=== PATIENT | female | born 1945 | race Caucasian/White ===

== ENCOUNTER 2024-02-28 19:32 | Inpatient (IN) | payer MEDICAID, MEDICARE ==
[2024-02-28] MEDS ORDERED: Ondansetron ODT 4 MG TAB PO PRN (19:59)
[2024-02-28] MEDS ORDERED: Ondansetron PF 4 MG/2 ML Vial IVP PRN ×2 (19:59→20:15)
[2024-02-28] MEDS: NOREPINEPHRINE 8 MG/250 ML-D5W 250 ML IVPB SCH (20:00)
[2024-02-28 20:01] LABS: Actual Bicarbonate (HCO3a) 15.4 mEq/L (22-28); Base Excess (BEa) -7.6 mEq/L (-2.0 to +3.0); CO2 Tension 24.8 mmHg (35.0-45.0); Calcium, Ionized (arterial) 1.17 mmol/L (1.12-1.30); Carboxyhemoglobin (COHb) 0.5 gm% (0.0-3.0); Hematocrit-ABG 36 % (36.0-47.0); Hemoglobin (Hb) 12.3 g/dL (12.0-16.0); O2 Tension (PaO2), arterial 76.5 mmHg (> 70.0); Potassium - ABG Lab 3.54 mmol/L (3.70-5.30); Puncture Site LRA
[2024-02-28] MEDS ORDERED: Dextrose 5% in Water 1,000 ML IV PRN (20:04)
[2024-02-28] MEDS ORDERED: Dextrose 50% Abboject 50 ML SYRINGE SLOW IVP PRN (20:04)
[2024-02-28] MEDS ORDERED: Glucagon 1 MG/ML KIT IM PRN (20:04)
[2024-02-28] MEDS ORDERED: Electrolyte Replacement Protocol 1 EACH FS SCH (20:08)
[2024-02-28] MEDS ORDERED: Ondansetron ODT 4 MG TAB SL PRN (20:15)
[2024-02-28] MEDS ORDERED: Acetaminophen 325 MG TAB PO PRN (20:15)
[2024-02-28] MEDS: Pantoprazole 40 MG VIAL IVP SCH (20:27)
[2024-02-28] MEDS: Acetaminophen 650 MG Suppository PR SCH (20:27)
[2024-02-28] MEDS: Sodium Chloride 0.9% 1,000 ML IV SCH (20:31)
[2024-02-28 20:37] LABS: Hematocrit 34.6 % (36.0-47.0); Hemoglobin 11.4 g/dL (12.0-16.0); Mean Corpuscular HGB CONC 32.9 g/dL (32.0-36.0); Mean Corpuscular Hemoglobin 31.3 pg (27.0-31.0); Mean Corpuscular Volume 95.1 fL (78.0-98.0); Mean Platelet Volume 12.3 fL (7.4-10.4); Platelet Count 117 10x3/uL (130-400); RBC Distribution Width 15.4 % (11.5-14.5); Red Blood Cell (RBC) Count 3.64 mill/uL (4.20-5.40)
[2024-02-28 20:38] LABS: Lactic Acid 1.6 mmol/L (0.5-2.2)
[2024-02-28 20:43] LABS: ALT (SGPT) 25 U/L (8-55); AST (SGOT) 52 U/L (5-34); Albumin 2.3 g/dL (3.4-4.8); Alkaline Phosphatase 63 U/L (40-110); Anion Gap 16 mmol/L (10-20); BUN (Urea Nitrogen) 36 mg/dL (9.8-20.1); Bilirubin, Total 1.1 mg/dL (0.2-1.2); Calc. Creatinine Clearance 0 mL/min (70-130); Calcium 8.2 mg/dL (7.8-10.44); Carbon Dioxide 14 mmol/L (23-31); Chloride 112 mmol/L (98-107); Estimated GFR 49; Globulin 3.4 g/dL (2.4-3.5); Glucose 129 mg/dL (83-110); Magnesium 2.1 mg/dL (1.6-2.6); Potassium 3.5 mmol/L (3.5-5.1); Protein, Total 5.7 g/dL (5.8-8.1); Sodium 138 mmol/L (136-145)
[2024-02-28 20:50] LABS: Critical Call Chem Troponin I ICU.VRM@2050; Troponin I 0.725 ng/mL (< 0.028)
[2024-02-28 20:56] LABS: Band 26 % (5-11); Large Platelets 5.9 % (0-5); Lymphocytes 23 % (21-51); Metamyelocyte 2 % (0-0); Monocytes 2 % (0-10); Neutrophil 48 % (42-75); Platelet Adequacy Comment Platelets Decreased; Polychromasia SLIGHT = 2-3 cells HPF (0-2)
[2024-02-28] MEDS ORDERED: Vancomycin (BATCH) 1.5 GM in Premix 1 BAG IVPB SCH (21:00)
[2024-02-28] MEDS: Sodium Bicarbonate 150 MEQ in Sterile Water 1,000 ML IV SCH (21:05)
[2024-02-28] MEDS: NOREPINEPHRINE 8 MG/250 ML-D5W 250 ML ONE (21:08)
[2024-02-28] MEDS: cefTRIAXone\\ROCEPHIN 2 GM in Sodium Chloride 0.9% 100 ML IVPB SCH (21:11)
[2024-02-28] MEDS: Albumin 25% 25 GM (100 mL) BOT IVPB SCH (21:11)
[2024-02-28] MEDS: Potassium Chloride 20 MEQ in Premix 1 BAG IVPB SCH (21:11)
[2024-02-28] MEDS ORDERED: Lidocaine 4% Patch TD PRN (21:32)
[2024-02-28] MEDS: Dexamethasone 10 MG/ML VIAL SLOW IVP SCH (21:47)
[2024-02-28] MEDS: Vasopressin 20 UNITS in Sodium Chloride 0.9% 50 ML IV SCH (21:54)
[2024-02-28] MEDS ORDERED: Acyclovir Sodium 500 mg (10 mL) Vial IVPB SCH (22:00)
[2024-02-28] MEDS: Vancomycin HCl 750 MG in Sodium Chloride 0.9% 250 ML 250 ML IVPB SCH (22:31)
[2024-02-28] MEDS: Morphine 2 MG/ML VIAL SLOW IVP SCH (22:50)
[2024-02-28] MEDS: Acyclovir Sodium 620 MG in Sodium Chloride 0.9% 100 ML IVPB SCH (23:47)
[2024-02-29] MEDS: Ampicillin 2 GM in Sodium Chloride 0.9% 100 ML IVPB SCH (01:02)
[2024-02-29 04:16] LABS: Hematocrit 28.7 % (36.0-47.0); Hemoglobin 9.2 g/dL (12.0-16.0); Mean Corpuscular HGB CONC 32.1 g/dL (32.0-36.0); Mean Corpuscular Hemoglobin 31.6 pg (27.0-31.0); Mean Corpuscular Volume 98.6 fL (78.0-98.0); Mean Platelet Volume 12.4 fL (7.4-10.4); Platelet Count 91 10x3/uL (130-400); RBC Distribution Width 15.5 % (11.5-14.5); Red Blood Cell (RBC) Count 2.91 mill/uL (4.20-5.40)
[2024-02-29 04:30] LABS: Vancomycin, Random 14.6 ug/mL (See Comment)
[2024-02-29 04:33] LABS: ALT (SGPT) 25 U/L (8-55); AST (SGOT) 44 U/L (5-34); Albumin 2.9 g/dL (3.4-4.8); Alkaline Phosphatase 49 U/L (40-110); Anion Gap 14 mmol/L (10-20); BUN (Urea Nitrogen) 37 mg/dL (9.8-20.1); Bilirubin, Total 0.9 mg/dL (0.2-1.2); CK (CPK) 859 U/L (29-168); Calc. Creatinine Clearance 51 mL/min (70-130); Carbon Dioxide 18 mmol/L (23-31); Chloride 108 mmol/L (98-107); Estimated GFR 53; Globulin 2.7 g/dL (2.4-3.5); Glucose 217 mg/dL (83-110); Potassium 3.9 mmol/L (3.5-5.1); Protein, Total 5.6 g/dL (5.8-8.1); Sodium 136 mmol/L (136-145)
[2024-02-29 04:40] LABS: Band 29 % (5-11); Hypochromia SLIGHT = 6-15 cells HPF (0-5); Lymphocytes 28 % (21-51); Monocytes 1 % (0-10); Neutrophil 42 % (42-75); Platelet Adequacy Comment Platelets Decreased; Polychromasia SLIGHT = 2-3 cells HPF (0-2)
[2024-02-29 04:42] LABS: CRP,High Sensitivity (Inhouse) 26.04 mg/dL (< or = 0.5)
[2024-02-29] MEDS: HumaLOG 300 UNITS/3 ML VIAL SC PRN (04:42)
[2024-02-29] MEDS ORDERED: Heparin 5,000 UNITS/ML VIAL SC SCH (09:00)
[2024-02-29] MEDS ORDERED: Dexamethasone 10 MG/ML VIAL SLOW IVP SCH (09:00)
[2024-02-29] MEDS ORDERED: Lidocaine 4% Patch TD SCH (09:00)
[2024-02-29] MEDS: Transdermal Patch Removal TOP SCH (09:25)
[2024-02-29] MEDS: Pantoprazole 40 MG VIAL IVP SCH (09:25)
[2024-02-29] MEDS: Hydrocortisone Sod Succ/PF 100 mg/2 ml Vial IVP SCH (09:25)
[2024-02-29] MEDS: Lactated Ringer's 1,000 ML IV SCH (09:25)
[2024-02-29] MEDS: Acetaminophen 650 MG Suppository PR PRN (09:50)
[2024-02-29] MEDS ORDERED: traMADol HCl 50 MG TAB PO PRN (10:00)
[2024-02-29] MEDS ORDERED: Gabapentin 100 MG CAP PO PRN (10:23)
[2024-02-29] MEDS: Morphine 2 MG/ML VIAL SLOW IVP PRN (11:35)
[2024-02-29] MEDS: Vancomycin (BATCH) 1.5 GM in Premix 1 BAG IVPB SCH (12:35)
[2024-02-29] MEDS ORDERED: Vancomycin (BATCH) 1.25 GM in Premix 1 BAG IVPB SCH (16:00)
[2024-02-29] MEDS ORDERED: Transdermal Patch Removal TOP SCH (21:00)
[2024-03-01 05:15] LABS: Hematocrit 27.5 % (36.0-47.0); Mean Corpuscular HGB CONC 32.7 g/dL (32.0-36.0); Mean Corpuscular Hemoglobin 31.7 pg (27.0-31.0); Mean Corpuscular Volume 96.8 fL (78.0-98.0); Platelet Count 73 10x3/uL (130-400); RBC Distribution Width 15.9 % (11.5-14.5); Red Blood Cell (RBC) Count 2.84 mill/uL (4.20-5.40)
[2024-03-01 05:18] LABS: Anion Gap 16 mmol/L (10-20); BUN (Urea Nitrogen) 33 mg/dL (9.8-20.1); CK (CPK) 383 U/L (29-168); Calc. Creatinine Clearance 78 mL/min (70-130); Calcium 8.5 mg/dL (7.8-10.44); Carbon Dioxide 19 mmol/L (23-31); Chloride 113 mmol/L (98-107); Estimated GFR 83; Glucose 118 mg/dL (83-110); Potassium 3.7 mmol/L (3.5-5.1); Sodium 144 mmol/L (136-145)
[2024-03-01 05:48] LABS: Critical Call Chem Troponin I RESULT DECREASING; Troponin I 0.654 ng/mL (< 0.028)
[2024-03-01 06:01] LABS: Anisocytosis SLIGHT = 6-15 cells HPF (0-5); Band 9 % (5-11); Lymphocytes 17 % (21-51); Macrocytosis MODERATE=16-30 cells HPF (0-5); Monocytes 3 % (0-10); Neutrophil 71 % (42-75); Ovalocytes SLIGHT = 2-5 cells HPF (0-1); Platelet Adequacy Comment Platelets Decreased; Polychromasia SLIGHT = 2-3 cells HPF (0-2)
[2024-03-01] MEDS: Furosemide 40 MG (4 mL) VIAL SLOW IVP SCH (12:09)
[2024-03-01] MEDS: Vancomycin 1 GM in Premix 1 BAG IVPB SCH (12:10)
[2024-03-02 04:59] LABS: Vancomycin, Random 32.7 ug/mL (See Comment)
[2024-03-02 09:43] LABS: Vancomycin, Random 20.4 ug/mL (See Comment)
[2024-03-02] MEDS: Vancomycin (BATCH) 1.5 GM in Premix 1 BAG IVPB SCH (14:26)
[2024-03-02] MEDS: Metoprolol Tartrate 25 MG TAB PO SCH (20:50)
[2024-03-02] MEDS: Hydrocortisone Sod Succ/PF 100 mg/2 ml Vial IVP SCH (20:51)
[2024-03-02] MEDS: Morphine 2 MG/ML VIAL SLOW IVP SCH (22:53)
[2024-03-02 23:00] LABS: Actual Bicarbonate (HCO3a) 25.7 mEq/L (22-28); Base Excess (BEa) 3.6 mEq/L (-2.0 to +3.0); Calcium, Ionized (arterial) 1.24 mmol/L (1.12-1.30); Carboxyhemoglobin (COHb) 0.7 gm% (0.0-3.0); Hematocrit-ABG 38 % (36.0-47.0); Hemoglobin (Hb) 12.9 g/dL (12.0-16.0); Potassium - ABG Lab 3.61 mmol/L (3.70-5.30); pH, Arterial 7.536 (7.35-7.45)
[2024-03-02 23:02] LABS: Puncture Site RRA
[2024-03-03 05:12] LABS: #Basophils 0.05 10x3/uL (0.0-0.2); #Eosinphils Less than 0.03 10x3/uL (0.0-0.7); %Basophils 0.4 % (0.0-1.0); %Lymphocytes 26.9 % (21.0-51.0); %Monocytes 6.5 % (0.0-10.0); %Neutrophils 64.9 % (42.0-75.0); Hematocrit 35.1 % (36.0-47.0); Hemoglobin 11.5 g/dL (12.0-16.0); Mean Corpuscular HGB CONC 32.8 g/dL (32.0-36.0); Mean Corpuscular Hemoglobin 30.6 pg (27.0-31.0); Mean Corpuscular Volume 93.4 fL (78.0-98.0); Mean Platelet Volume 12.8 fL (7.4-10.4); Platelet Count 87 10x3/uL (130-400); RBC Distribution Width 15.3 % (11.5-14.5); Red Blood Cell (RBC) Count 3.76 mill/uL (4.20-5.40)
[2024-03-03 05:16] LABS: Vancomycin, Random 20.9 ug/mL (See Comment)
[2024-03-03 05:25] LABS: ALT (SGPT) 33 U/L (8-55); AST (SGOT) 28 U/L (5-34); Albumin 2.5 g/dL (3.4-4.8); Alkaline Phosphatase 70 U/L (40-110); Anion Gap 14 mmol/L (10-20); BUN (Urea Nitrogen) 32 mg/dL (9.8-20.1); Bilirubin, Total 0.9 mg/dL (0.2-1.2); Calc. Creatinine Clearance 77 mL/min (70-130); Calcium 9.2 mg/dL (7.8-10.44); Carbon Dioxide 26 mmol/L (23-31); Chloride 106 mmol/L (98-107); Estimated GFR 85; Glucose 121 mg/dL (83-110); Magnesium 2.1 mg/dL (1.6-2.6); Phosphorus 1.4 mg/dL (2.3-4.7); Potassium 3.2 mmol/L (3.5-5.1); Protein, Total 5.5 g/dL (5.8-8.1); Sodium 143 mmol/L (136-145)
[2024-03-03] MEDS: Potassium Phosphate 22 MMOL in Sodium Chloride 0.9% 250 ML 250 ML IVPB SCH (07:37)
[2024-03-03] MEDS: Rocuronium Bromide 10 MG/ML (10ML VIAL) IVP SCH (10:58)
[2024-03-03] MEDS: Etomidate 40 MG (20 mL) VIAL IVP SCH (10:58)
[2024-03-03] MEDS ORDERED: Rocuronium Bromide 10 MG/ML (10ML VIAL) ONE (11:00)
[2024-03-03] MEDS ORDERED: Etomidate 40 MG (20 mL) VIAL ONE (11:00)
[2024-03-03] MEDS: Propofol 1,000 MG/100 ML VIAL IV ONE (11:15)
[2024-03-03 11:34] LABS: Actual Bicarbonate (HCO3a) 25.2 mEq/L (22-28); Base Excess (BEa) 2.8 mEq/L (-2.0 to +3.0); CO2 Tension 31.7 mmHg (35.0-45.0); Carboxyhemoglobin (COHb) 0.4 gm% (0.0-3.0); Hematocrit-ABG 36 % (36.0-47.0); Hemoglobin (Hb) 12.3 g/dL (12.0-16.0); O2 Tension (PaO2), arterial 124.1 mmHg (> 70.0); pH, Arterial 7.518 (7.35-7.45)
[2024-03-03 11:35] LABS: ALV-art Gradient 264.075 mmHg (0-20); Puncture Site RRA
[2024-03-03] MEDS ORDERED: Propofol BOLUS 1,000 MG/100 ML VIAL IV PRN (11:45)
[2024-03-03] MEDS ORDERED: Fentanyl BOLUS 250 ML IVPB PRN (11:45)
[2024-03-03] MEDS ORDERED: Morphine 2 MG/ML VIAL SLOW IVP PRN (11:45)
[2024-03-03] MEDS ORDERED: Propofol 1,000 MG/100 ML VIAL IV PRN (11:45)
[2024-03-03] MEDS: Lorazepam 2 MG/ML VIAL SLOW IVP PRN (11:47)
[2024-03-03] MEDS: Acetaminophen 325 MG TAB PO PRN (11:52)
[2024-03-03] MEDS: Ventilator Sedation Protocol 1 EACH FS ONE (11:56)
[2024-03-03] MEDS: NOREPINEPHRINE 8 MG/250 ML-D5W 250 ML ONE (12:52)
[2024-03-03] MEDS: Fentanyl CADD 100 ML IV SCH (13:40)
[2024-03-03] MEDS ORDERED: Sodium Chloride 0.9% 250 ML IV SCH (14:00)
[2024-03-03] MEDS: Albumin 25% 25 GM (100 mL) BOT IVPB SCH (15:00)
[2024-03-03] MEDS ORDERED: Albumin 25% 25 GM (100 mL) BOT IVPB SCH (20:00)
[2024-03-04 05:03] LABS: Hematocrit 30.1 % (36.0-47.0); Hemoglobin 9.7 g/dL (12.0-16.0); Mean Corpuscular HGB CONC 32.2 g/dL (32.0-36.0); Mean Corpuscular Hemoglobin 30.7 pg (27.0-31.0); Mean Corpuscular Volume 95.3 fL (78.0-98.0); Mean Platelet Volume 13.2 fL (7.4-10.4); Platelet Count 65 10x3/uL (130-400); RBC Distribution Width 15.5 % (11.5-14.5); Red Blood Cell (RBC) Count 3.16 mill/uL (4.20-5.40)
[2024-03-04 05:09] LABS: ALT (SGPT) 21 U/L (8-55); AST (SGOT) 26 U/L (5-34); Albumin 3.5 g/dL (3.4-4.8); Alkaline Phosphatase 49 U/L (40-110); Anion Gap 15 mmol/L (10-20); BUN (Urea Nitrogen) 32 mg/dL (9.8-20.1); Bilirubin, Total 1.1 mg/dL (0.2-1.2); Calc. Creatinine Clearance 71 mL/min (70-130); Calcium 9.2 mg/dL (7.8-10.44); Carbon Dioxide 25 mmol/L (23-31); Chloride 108 mmol/L (98-107); Estimated GFR 72; Globulin 2.1 g/dL (2.4-3.5); Glucose 141 mg/dL (83-110); Potassium 3.5 mmol/L (3.5-5.1); Protein, Total 5.6 g/dL (5.8-8.1); Sodium 144 mmol/L (136-145)
[2024-03-04 05:38] LABS: Band 17 % (5-11); Hypochromia SLIGHT = 6-15 cells HPF (0-5); Large Platelets 3.9 % (0-5); Lymphocytes 23 % (21-51); Monocytes 3 % (0-10); Neutrophil 55 % (42-75); Nucleated RBC (Manual Ct) 1 % (0); Platelet Adequacy Comment Platelets Decreased; Polychromasia SLIGHT = 2-3 cells HPF (0-2); Reactive Lymphocytes 1 % (0-10)
[2024-03-04 05:59] LABS: Phosphorus 2.5 mg/dL (2.3-4.7)
[2024-03-04] MEDS: Potassium Chloride 20 MEQ in Premix 1 BAG IVPB SCH (10:29)
[2024-03-04 13:40] LABS: O2 Tension (PaO2), arterial 59.3 mmHg (> 70.0)
[2024-03-04] MEDS: NOREPINEPHRINE 8 MG/250 ML-D5W 250 ML IVPB SCH (16:20)
[2024-03-04 16:54] LABS: Potassium 4.3 mmol/L (3.5-5.1)
[2024-03-05 04:11] LABS: Hematocrit 29.5 % (36.0-47.0); Hemoglobin 9.5 g/dL (12.0-16.0); Mean Corpuscular HGB CONC 32.2 g/dL (32.0-36.0); Mean Corpuscular Volume 96.4 fL (78.0-98.0); Platelet Count 60 10x3/uL (130-400); RBC Distribution Width 15.7 % (11.5-14.5); Red Blood Cell (RBC) Count 3.06 mill/uL (4.20-5.40)
[2024-03-05 04:37] LABS: Phosphorus 2.6 mg/dL (2.3-4.7); Vancomycin, Random 23.6 ug/mL (See Comment)
[2024-03-05 04:38] LABS: ALT (SGPT) 20 U/L (8-55); AST (SGOT) 29 U/L (5-34); Albumin 2.8 g/dL (3.4-4.8); Alkaline Phosphatase 53 U/L (40-110); Anion Gap 16 mmol/L (10-20); BUN (Urea Nitrogen) 44 mg/dL (9.8-20.1); Bilirubin, Total 0.8 mg/dL (0.2-1.2); Calc. Creatinine Clearance 65 mL/min (70-130); Carbon Dioxide 23 mmol/L (23-31); Chloride 110 mmol/L (98-107); Estimated GFR 64; Globulin 2.1 g/dL (2.4-3.5); Glucose 141 mg/dL (83-110); Potassium 3.6 mmol/L (3.5-5.1); Protein, Total 4.9 g/dL (5.8-8.1); Sodium 145 mmol/L (136-145)
[2024-03-05 04:47] LABS: Anisocytosis SLIGHT = 6-15 cells HPF (0-5); Band 10 % (5-11); Hypochromia SLIGHT = 6-15 cells HPF (0-5); Lymphocytes 9 % (21-51); Macrocytosis SLIGHT = 6-15 cells HPF (0-5); Monocytes 3 % (0-10); Neutrophil 78 % (42-75); Ovalocytes SLIGHT = 2-5 cells HPF (0-1); Platelet Adequacy Comment Platelets Decreased; Polychromasia SLIGHT = 2-3 cells HPF (0-2)
[2024-03-05 07:35] LABS: Actual Bicarbonate (HCO3a) 25.8 mEq/L (22-28); Base Excess (BEa) 2.2 mEq/L (-2.0 to +3.0); CO2 Tension 36.5 mmHg (35.0-45.0); Calcium, Ionized (arterial) 1.25 mmol/L (1.12-1.30); Carboxyhemoglobin (COHb) 0.5 gm% (0.0-3.0); Hematocrit-ABG 36 % (36.0-47.0); Hemoglobin (Hb) 12.3 g/dL (12.0-16.0); O2 Tension (PaO2), arterial 62.3 mmHg (> 70.0); Potassium - ABG Lab 3.69 mmol/L (3.70-5.30); pH, Arterial 7.467 (7.35-7.45)
[2024-03-05 07:36] LABS: ALV-art Gradient 177.275 mmHg (0-20); Puncture Site LRA
[2024-03-05] MEDS: Furosemide 40 MG (4 mL) VIAL SLOW IVP SCH (09:50)
[2024-03-05] MEDS: Vecuronium 10 MG VIAL IVP PRN (12:30)
[2024-03-05] MEDS ORDERED: Vancomycin (BATCH) 1.25 GM in Premix 1 BAG IVPB SCH (13:00)
[2024-03-05] MEDS: Ceftaroline 600 MG in Sodium Chloride 0.9% 100 ML IVPB SCH (14:55)
[2024-03-05] MEDS: Albumin 25% 25 GM (100 mL) BOT IVPB SCH (15:00)
[2024-03-05] MEDS: DAPTOmycin 800 MG in Sodium Chloride 0.9% 50 ML IVPB SCH (15:52)
[2024-03-05] MEDS: Acetaminophen 650 MG/20.3 ML UDCUP PO PRN (21:59)
[2024-03-06] MEDS: HumaLOG 300 UNITS/3 ML VIAL SC PRN (04:35)
[2024-03-06 04:53] LABS: Phosphorus 2.5 mg/dL (2.3-4.7)
[2024-03-06 04:55] LABS: ALT (SGPT) 27 U/L (8-55); AST (SGOT) 38 U/L (5-34); Albumin 2.8 g/dL (3.4-4.8); Alkaline Phosphatase 67 U/L (40-110); Anion Gap 11 mmol/L (10-20); BUN (Urea Nitrogen) 59 mg/dL (9.8-20.1); Bilirubin, Total 0.6 mg/dL (0.2-1.2); Calc. Creatinine Clearance 58 mL/min (70-130); Calcium 8.9 mg/dL (7.8-10.44); Carbon Dioxide 25 mmol/L (23-31); Chloride 112 mmol/L (98-107); Estimated GFR 55; Glucose 204 mg/dL (83-110); Potassium 3.1 mmol/L (3.5-5.1); Protein, Total 4.8 g/dL (5.8-8.1); Sodium 145 mmol/L (136-145)
[2024-03-06 05:44] LABS: Hematocrit 29.9 % (36.0-47.0); Hemoglobin 9.8 g/dL (12.0-16.0); Mean Corpuscular HGB CONC 32.8 g/dL (32.0-36.0); Mean Corpuscular Hemoglobin 31.1 pg (27.0-31.0); Mean Corpuscular Volume 94.9 fL (78.0-98.0); Platelet Count 56 10x3/uL (130-400); RBC Distribution Width 15.8 % (11.5-14.5); Red Blood Cell (RBC) Count 3.15 mill/uL (4.20-5.40)
[2024-03-06 06:51] LABS: Actual Bicarbonate (HCO3a) 23.5 mEq/L (22-28); Base Excess (BEa) 0.3 mEq/L (-2.0 to +3.0); Calcium, Ionized (arterial) 1.21 mmol/L (1.12-1.30); Carboxyhemoglobin (COHb) 0.3 gm% (0.0-3.0); Hematocrit-ABG 30 % (36.0-47.0); Hemoglobin (Hb) 10.1 g/dL (12.0-16.0); O2 Tension (PaO2), arterial 100.2 mmHg (> 70.0); pH, Arterial 7.471 (7.35-7.45)
[2024-03-06 07:04] LABS: Anisocytosis SLIGHT = 6-15 cells HPF (0-5); Band 10 % (5-11); Burr Cells SLIGHT = 2-5 cells HPF (0-1); Lymphocytes 6 % (21-51); Macrocytosis SLIGHT = 6-15 cells HPF (0-5); Monocytes 1 % (0-10); Neutrophil 83 % (42-75); Platelet Adequacy Comment Platelets Decreased; Polychromasia SLIGHT = 2-3 cells HPF (0-2)
[2024-03-06 07:54] LABS: Puncture Site RRA
[2024-03-06] MEDS: Potassium Chloride 20 MEQ in Premix 1 BAG IVPB SCH (09:06)
[2024-03-06] MEDS ORDERED: Transdermal Patch Removal TOP PRN (10:32)
[2024-03-06] MEDS ORDERED: Insulin Lispro 100 UNIT/ML 10 ML VIAL SC PRN (13:00)
[2024-03-06] MEDS: Insulin Lispro 100 UNIT/ML 10 ML VIAL SC PRN (13:35)
[2024-03-07 05:14] LABS: Hematocrit 30.2 % (36.0-47.0); Hemoglobin 9.7 g/dL (12.0-16.0); Mean Corpuscular HGB CONC 32.1 g/dL (32.0-36.0); Mean Corpuscular Hemoglobin 30.7 pg (27.0-31.0); Mean Corpuscular Volume 95.6 fL (78.0-98.0); Platelet Count 52 10x3/uL (130-400); RBC Distribution Width 15.9 % (11.5-14.5); Red Blood Cell (RBC) Count 3.16 mill/uL (4.20-5.40)
[2024-03-07 05:41] LABS: ALT (SGPT) 44 U/L (8-55); AST (SGOT) 36 U/L (5-34); Albumin 2.5 g/dL (3.4-4.8); Alkaline Phosphatase 66 U/L (40-110); Anion Gap 12 mmol/L (10-20); BUN (Urea Nitrogen) 65 mg/dL (9.8-20.1); Bilirubin, Total 0.6 mg/dL (0.2-1.2); Calc. Creatinine Clearance 72 mL/min (70-130); Calcium 8.8 mg/dL (7.8-10.44); Carbon Dioxide 24 mmol/L (23-31); Chloride 116 mmol/L (98-107); Estimated GFR 72; Globulin 2.2 g/dL (2.4-3.5); Glucose 197 mg/dL (83-110); Potassium 3.4 mmol/L (3.5-5.1); Protein, Total 4.7 g/dL (5.8-8.1); Sodium 149 mmol/L (136-145)
[2024-03-07 05:42] LABS: Band 2 % (5-11); Lymphocytes 7 % (21-51); Monocytes 1 % (0-10); Neutrophil 90 % (42-75); Platelet Adequacy Comment Significant Decrease; RBC Morphology Within Normal Limits
[2024-03-07] MEDS: Potassium Chloride 20 MEQ TAB PO SCH (08:58)
[2024-03-07 09:20] LABS: ALV-art Gradient 169.075 mmHg (0-20); Actual Bicarbonate (HCO3a) 25.7 mEq/L (22-28); Analyzer IN Cardio OR; Base Excess (BEa) 3.3 mEq/L (-2.0 to +3.0); CO2 Tension 31.7 mmHg (35.0-45.0); Carboxyhemoglobin (COHb) 0.3 gm% (0.0-3.0); Hematocrit-ABG 31 % (36.0-47.0); Hemoglobin (Hb) 10.6 g/dL (12.0-16.0); O2 Tension (PaO2), arterial 76.5 mmHg (> 70.0); Peep/CPAP 7.5 cmH2O; Potassium - ABG Lab 3.31 mmol/L (3.70-5.30); Puncture Site RRA; pH, Arterial 7.527 (7.35-7.45)
[2024-03-08 05:06] LABS: #Basophils 0.04 10x3/uL (0.0-0.2); #Eosinphils Less than 0.03 10x3/uL (0.0-0.7); %Basophils 0.2 % (0.0-1.0); %Eosinophils 0.1 % (0.0-10.0); %Lymphocytes 14.8 % (21.0-51.0); %Monocytes 2.6 % (0.0-10.0); %Neutrophils 81.4 % (42.0-75.0); Hematocrit 28.1 % (36.0-47.0); Hemoglobin 8.8 g/dL (12.0-16.0); Mean Corpuscular HGB CONC 31.3 g/dL (32.0-36.0); Mean Corpuscular Hemoglobin 30.2 pg (27.0-31.0); Mean Corpuscular Volume 96.6 fL (78.0-98.0); Mean Platelet Volume 14.5 fL (7.4-10.4); Platelet Count 58 10x3/uL (130-400); Red Blood Cell (RBC) Count 2.91 mill/uL (4.20-5.40)
[2024-03-08 05:36] LABS: ALT (SGPT) 62 U/L (8-55); AST (SGOT) 41 U/L (5-34); Albumin 2.3 g/dL (3.4-4.8); Alkaline Phosphatase 60 U/L (40-110); Anion Gap 12 mmol/L (10-20); BUN (Urea Nitrogen) 65 mg/dL (9.8-20.1); Bilirubin, Total 0.6 mg/dL (0.2-1.2); Calc. Creatinine Clearance 70 mL/min (70-130); Carbon Dioxide 26 mmol/L (23-31); Chloride 120 mmol/L (98-107); Estimated GFR 69; Globulin 2.3 g/dL (2.4-3.5); Glucose 174 mg/dL (83-110); Potassium 3.6 mmol/L (3.5-5.1); Protein, Total 4.6 g/dL (5.8-8.1); Sodium 154 mmol/L (136-145)
[2024-03-08] MEDS: Dextrose 5% in Water 1,000 ML IV SCH (06:42)
[2024-03-08 07:03] LABS: Actual Bicarbonate (HCO3a) 23.7 mEq/L (22-28); Analyzer IN Cardio OR; Base Excess (BEa) 1.8 mEq/L (-2.0 to +3.0); CO2 Tension 28.6 mmHg (35.0-45.0); Calcium, Ionized (arterial) 1.26 mmol/L (1.12-1.30); Carboxyhemoglobin (COHb) 0.2 gm% (0.0-3.0); Hematocrit-ABG 31 % (36.0-47.0); Hemoglobin (Hb) 10.6 g/dL (12.0-16.0); O2 Tension (PaO2), arterial 116.6 mmHg (> 70.0); Potassium - ABG Lab 3.39 mmol/L (3.70-5.30); pH, Arterial 7.537 (7.35-7.45)
[2024-03-08 07:12] LABS: Peep/CPAP 7.5 cmH2O; Puncture Site RRA
[2024-03-08 14:49] VITALS: BP 126/65
[2024-03-09 05:06] LABS: #Basophils 0.04 10x3/uL (0.0-0.2); #Eosinphils Less than 0.03 10x3/uL (0.0-0.7); %Basophils 0.2 % (0.0-1.0); %Eosinophils 0.1 % (0.0-10.0); %Monocytes 2.5 % (0.0-10.0); %Neutrophils 77.4 % (42.0-75.0); Hematocrit 28.9 % (36.0-47.0); Hemoglobin 9.1 g/dL (12.0-16.0); Mean Corpuscular HGB CONC 31.5 g/dL (32.0-36.0); Mean Corpuscular Hemoglobin 31.4 pg (27.0-31.0); Mean Corpuscular Volume 99.7 fL (78.0-98.0); Mean Platelet Volume 14.3 fL (7.4-10.4); Platelet Count 75 10x3/uL (130-400); RBC Distribution Width 16.1 % (11.5-14.5)
[2024-03-09 05:35] LABS: ALT (SGPT) 64 U/L (8-55); AST (SGOT) 35 U/L (5-34); Albumin 2.3 g/dL (3.4-4.8); Alkaline Phosphatase 70 U/L (40-110); Anion Gap 13 mmol/L (10-20); BUN (Urea Nitrogen) 61 mg/dL (9.8-20.1); Bilirubin, Total 0.5 mg/dL (0.2-1.2); Calc. Creatinine Clearance 74 mL/min (70-130); Calcium 9.1 mg/dL (7.8-10.44); Carbon Dioxide 26 mmol/L (23-31); Chloride 115 mmol/L (98-107); Estimated GFR 74; Globulin 2.5 g/dL (2.4-3.5); Glucose 197 mg/dL (83-110); Potassium 3.5 mmol/L (3.5-5.1); Protein, Total 4.8 g/dL (5.8-8.1); Sodium 150 mmol/L (136-145)
[2024-03-09 05:49] VITALS: BMI 27.8
[2024-03-09] MEDS: Potassium Bicarbonate/Cit Ac 20 MEQ TAB PER TUBE SCH (07:47)
[2024-03-09] MEDS: Levothyroxine Sodium 125 MCG TAB PER TUBE SCH (10:45)
[2024-03-09 12:24] LABS: Potassium 4.4 mmol/L (3.5-5.1)
[2024-03-10] MEDS: Morphine 2 MG/ML VIAL SLOW IVP PRN (00:21)
[2024-03-10] MEDS: Levothyroxine Sodium 125 MCG TAB PER TUBE SCH (06:26)
[2024-03-10] MEDS: Furosemide 40 MG (4 mL) VIAL SLOW IVP SCH (09:42)
[2024-03-10] MEDS: Hydrocortisone Sod Succ/PF 100 mg/2 ml Vial IVP SCH (09:43)
[2024-03-10] MEDS: Furosemide 40 MG (4 mL) VIAL ONE (09:43)
[2024-03-11 12:32] VITALS: BMI 27.4
[2024-03-12] MEDS ORDERED: Morphine 2 MG/ML VIAL SLOW IVP PRN (15:16)
[2024-03-12 20:33] VITALS: TEMP 97.1
== END 2024-03-13 01:10 | disposition hospice, inpatient (51) | DRG 870 ==
LOC: CCU 19:32 → IMCU/EMU 03-09 17:17
PROVIDERS: ADMIT Family Medicine; ATTEND Internal Medicine
PROC: 3E033XZ Introduction of Vasopressor into Peripheral Vein, Percutaneous Approach (ICD-10-PCS; 2024-02-28)
PROC: 3E03329 Introduction of Other Anti-infective into Peripheral Vein, Percutaneous Approach (ICD-10-PCS; 2024-02-28)
PROC: 5A0945A Assistance with Respiratory Ventilation, 24-96 Consecutive Hours, High Flow/Velocity Cannula (ICD-10-PCS; 2024-02-28)
PROC: 5A09357 Assistance with Respiratory Ventilation, Less than 24 Consecutive Hours, Continuous Positive Airway Pressure (ICD-10-PCS; 2024-02-28)
PROC: 4A133R1 Monitoring of Arterial Saturation, Peripheral, Percutaneous Approach (ICD-10-PCS; 2024-03-02)
PROC: 5A1955Z Respiratory Ventilation, Greater than 96 Consecutive Hours (ICD-10-PCS; principal; 2024-03-03)
PROC: 0BH18EZ Insertion of Endotracheal Airway into Trachea, Via Natural or Artificial Opening Endoscopic (ICD-10-PCS; 2024-03-03)
PROC: B245ZZ4 Ultrasonography of Left Heart, Transesophageal (ICD-10-PCS; 2024-03-03)
PROC: 30233J1 Transfusion of Nonautologous Serum Albumin into Peripheral Vein, Percutaneous Approach (ICD-10-PCS; 2024-03-03)
DX: A41.02 Sepsis due to Methicillin resistant Staphylococcus aureus (principal); G93.41 Metabolic encephalopathy; I21.4 Non-ST elevation (NSTEMI) myocardial infarction; J18.9 Pneumonia, unspecified organism; J96.01 Acute respiratory failure with hypoxia; R65.21 Severe sepsis with septic shock; I63.9 Cerebral infarction, unspecified; N17.9 Acute kidney failure, unspecified; M62.82 Rhabdomyolysis; I48.92 Unspecified atrial flutter; I76 Septic arterial embolism; M86.8X7 Other osteomyelitis, ankle and foot; Z66 Do not resuscitate; Z51.5 Encounter for palliative care; I11.0 Hypertensive heart disease with heart failure; I50.9 Heart failure, unspecified; K21.9 Gastro-esophageal reflux disease without esophagitis; I89.0 Lymphedema, not elsewhere classified; R79.89 Other specified abnormal findings of blood chemistry; R33.9 Retention of urine, unspecified; D69.6 Thrombocytopenia, unspecified; E03.9 Hypothyroidism, unspecified; I05.9 Rheumatic mitral valve disease, unspecified; I48.91 Unspecified atrial fibrillation; I66.9 Occlusion and stenosis of unspecified cerebral artery
CPT/HCPCS: 36415; 36416; 36556; 36600; 62270; 70450; 70551; 71045; 72141; 72146; 72148; 74177; 75635; 80048; 80053; 80202; 80306; 80307; 81001; 82140; 82533; 82550; 82805; 83605; 83735; 83880; 84100; 84145; 84443; 84484; 85025; 85610; 85730; 86140; 86141; 87040; 87077; 87081; 87086; 87149; 87186; 93005; 93010; 93306; 93312; 94002; 94003; 94660; 96372; 96374; 96375; 96376; 97139; A4217; C9113; J0133; J0290; J0696; J0712; J0878; J1100; J1650; J1720; J1815; J1885; J1940; J2060; J2272; J2543; J2704; J3010; J3370; J3370-JW; J3480; J3490; J7050; J7070; J7120; P9047; Q9967

== ENCOUNTER 2024-03-13 01:16 | Inpatient (IN) | payer OTHER ==
[2024-03-13] MEDS ORDERED: Bisacodyl 10 MG SUPP PR PRN (01:24)
[2024-03-13] MEDS: Scopolamine 1 mg/72 hour Patch TOP SCH (01:53)
[2024-03-13] MEDS: Morphine 2 MG/ML VIAL SLOW IVP PRN (01:54)
[2024-03-13] MEDS: Lorazepam 2 MG/ML VIAL SLOW IVP PRN (01:54)
[2024-03-13 03:13] VITALS: BMI 26.2
== END 2024-03-13 17:13 | disposition expired | DRG 951 ==
LOC: IMCU/EMU 01:16
PROVIDERS: ADMIT Internal Medicine Nephrology; ATTEND Internal Medicine Nephrology
PROC: 5A0935A Assistance with Respiratory Ventilation, Less than 24 Consecutive Hours, High Flow/Velocity Cannula (ICD-10-PCS; principal; 2024-03-13)
DX: Z51.5 Encounter for palliative care (principal); A41.02 Sepsis due to Methicillin resistant Staphylococcus aureus; R65.21 Severe sepsis with septic shock; Z66 Do not resuscitate; I63.9 Cerebral infarction, unspecified; G93.41 Metabolic encephalopathy; J96.01 Acute respiratory failure with hypoxia; M86.8X7 Other osteomyelitis, ankle and foot; N17.9 Acute kidney failure, unspecified; M62.82 Rhabdomyolysis; I48.92 Unspecified atrial flutter; R79.89 Other specified abnormal findings of blood chemistry; I10 Essential (primary) hypertension; I95.9 Hypotension, unspecified; K21.9 Gastro-esophageal reflux disease without esophagitis; I89.0 Lymphedema, not elsewhere classified; E03.9 Hypothyroidism, unspecified; I05.9 Rheumatic mitral valve disease, unspecified; I66.9 Occlusion and stenosis of unspecified cerebral artery; D69.6 Thrombocytopenia, unspecified; R33.9 Retention of urine, unspecified
CPT/HCPCS: J2060; J2272